=== PATIENT | female | born 1940 | race Caucasian/White ===

== ENCOUNTER 2018-04-28 13:54 | Emergency (ER) | payer BC ==
--- NOTE | 2018-04-28 14:21 | Emergency Department Record ---
History of Present Illness - General Chief complaint: Pain Stated complaint: RT KNEE PAIN Time Seen by Provider: 04/28/18 14:11 Source: Patient, RN notes reviewed Mode of Arrival: Wheelchair - History of Present Illness Initial comments: patient has right knee pain and seen by Dr. Rowe yesterday and she had artrocentesis done she was told it is gout and given a steroid shot and her pain is still bad and she has an effusion of the right knee no warmth and the injection site looks good. PMH Brain bleeds and she cannot use NSAIDs and only uses tylenol for pain. Patient states no falls or injuries and it has been painful on and off for about 3 weeks Onset/Timin -: Days(s) Location: Right, Knee Radiation: None Severity scale (1-10): 6 Quality: Aching, Sharp Consistency: Constant Improves with: Nothing Worsens with: Walking, Weight bearing Associated Symptoms: Denies other symptoms - Related Data Previous Rx's Medication Instructions Recorded Prednisone [Prednisone 10Mg] 10 mg PO ASDIR #30 tab 04/28/18 Tramadol HCl [Ultram] 50 mg PO Q8H #9 tab 04/28/18 Allergies Allergy/AdvReac Type Severity Reaction Status Date / Time morphine Allergy Severe BEHAVIORAL Verified 04/28/18 14:05 CHANGES Travel Screening - Travel/Exposure Within Last 30 Days Have you traveled within the last 30 days?: No Review of Systems Reviewed: No additional complaints except as noted below Constitutional: Reports: As per HPI. Denies: Chills, Fever, Malaise, Night sweats, Weakness, Weight change Eyes: Reports: As per HPI. Denies: Eye discharge, Eye pain, Photophobia, Vision change ENT: Reports: As per HPI. Denies: Congestion, Dental pain, Ear pain, Epistaxis , Hearing loss, Throat pain Respiratory: Reports: As per HPI. Denies: Cough, Dyspnea, Hemoptysis, Stridor, Wheezes Cardiovascular: Reports: As per HPI. Denies: Arrhythmia, Chest pain, Dyspnea on exertion, Edema, Murmurs, Orthopnea, Palpitations, Paroxysmal nocturnal dyspnea, Rheumatic Fever, Syncope Endocrine: Reports: As per HPI. Denies: Fatigue, Heat or cold intolerance, Polydipsia, Polyuria Gastrointestinal: Reports: As per HPI. Denies: Abdominal pain, Constipation, Diarrhea, Hematemesis, Hematochezia, Melena, Nausea, Vomiting Genitourinary: Reports: As per HPI. Denies: Abnormal menses, Discharge, Dyspareunia, Dysuria, Frequency, Hematuria, Incontinence, Retention, Urgency Musculoskeletal: Reports: As per HPI, Joint swelling (right knee). Denies: Arthralgia, Back pain, Gout, Myalgia, Neck pain Skin: Reports: As per HPI. Denies: Bruising, Change in color, Change in hair/ nails, Lesions, Pruritus, Rash Neurological: Reports: As per HPI. Denies: Abnormal gait, Confusion, Headache, Numbness, Paresthesias, Seizure, Tingling, Tremors, Vertigo, Weakness Psychiatric: Reports: As per HPI. Denies: Anxiety, Auditory hallucinations, Depression, Homicidal thoughts, Suicidal thoughts, Visual hallucinations Hematological/Lymphatic: Reports: As per HPI. Denies: Anemia, Blood Clots, Easy bleeding, Easy bruising, Swollen glands Past Medical History - SOCIAL HISTORY Smoking Status: Never smoker - RESPIRATORY Hx Respiratory Disorders: Yes Comment:: sarcoidosis - CARDIOVASCULAR Hx Cardio Disorders: Yes Hx Hypertension: Yes Comment:: possible murmur - NEURO Hx Neuro Disorders: Yes Hx CVA: Yes (brain bleed) Hx Headaches: Yes Comment:: visual disturbances - GI Hx GI Disorders: No - Hx Genitourinary Disorders: Yes Hx Kidney Stones: Yes - ENDOCRINE Hx Endocrine Disorders: No - MUSCULOSKELETAL Hx Musculoskeletal Disorders: Yes Hx Arthritis: Yes Hx Osteoporosis: Yes - PSYCH Hx Psych Problems: Yes Hx Anxiety: Yes - HEMATOLOGY/ONCOLOGY Hx Hematology/Oncology Disorders: No Family Medical History Any Significant Family History?: Yes Hx Dementia: Father Hx Heart Disease: Father, Mother Physical Exam - General General Appearance: Alert, Oriented x3, Cooperative, No acute distress - Head Head exam: Normal inspection - Eye Eye exam: Normal appearance, PERRL Pupils: Normal accommodation - ENT ENT exam: Normal exam, Mucous membranes moist, Normal external ear exam, Normal orophraynx, TM's normal bilaterally Ear exam: Normal external inspection. negative: External canal tenderness Nasal Exam: Normal inspection. negative: Discharge, Sinus tenderness Mouth exam: Normal external inspection, Tongue normal Teeth exam: Normal inspection. negative: Dental caries Throat exam: Normal inspection. negative: Tonsillar erythema, Tonsillar exudate - Neck Neck exam: Normal inspection, Full ROM. negative: Tenderness - Respiratory Respiratory exam: Normal lung sounds bilaterally. negative: Respiratory distress - Cardiovascular Cardiovascular Exam: Regular rate, Normal rhythm, Normal heart sounds - GI/Abdominal GI/Abdominal exam: Soft, Normal bowel sounds. negative: Tenderness - Rectal Rectal exam: Deferred - exam: Deferred - Extremities Extremities exam: Joint swelling, Normal capillary refill, Tenderness - Back Back exam: Reports: Normal inspection, Full ROM. Denies: Muscle spasm, Rash noted, Tenderness - Neurological Neurological exam: Alert, Normal gait, Oriented X3, Reflexes normal - Psychiatric Psychiatric exam: Normal affect, Normal mood - Skin Skin exam: Dry, Intact, Normal color, Warm Course Vital Signs 04/28/18 14:08 Pulse Rate [ 60 Pulse Ox Probe] Respiratory 20 Rate Blood Pressure 152/84 [Left Arm] Pulse Ox 96 Medical Decision Making - Data Complexity MDM Data: X-Ray Ordered and/or Reviewed (WBC 6,300, blood uric acid normal) - Lab Data Result diagrams: 04/28/18 14:27 Disposition Clinical Impression: Knee pain, right Qualifiers: Chronicity: acute Qualified Code(s): M25.561 - Pain in right knee Osteoarthritis Qualifiers: Osteoarthritis location: knee Osteoarthritis type: primary Laterality: right Qualified Code(s): M17.11 - Unilateral primary osteoarthritis, right knee Disposition: Home, Self-Care Condition: (1) Good Instructions: Osteoarthritis (ED) Additional Instructions: follow up with Dr. Rowe Prescriptions: Prednisone [Prednisone 10Mg] 10 mg PO ASDIR #30 tab Tramadol HCl [Ultram] 50 mg PO Q8H #9 tab Forms: Patient Portal Access Time of Disposition: 14:44 Quality - Quality Measures Quality Measures: N/A - Blood Pressure Screening Does Patient Have Any of the Following: No, Active Dx of HTN Blood Pressure Classification: Pre-Hypertensive BP Reading Systolic Measurement: 152 Diastolic Measurement: 84 Screening for High Blood Pressure: Patient Exclusion, Hx of HTN [G9744]
[2018-04-28 14:36] LABS: BASO % 0.5 % (0-6); EOS % 2.1 % (0-6); GRAN % 77.2 % (47-80); HEMATOCRIT 38.7 % (35.0-47.0); HEMOGLOBIN 12.2 gm/dl (11.6-16.0); LYMPH % 13.3 % (16-45); MEAN CELL VOLUME 92.6 fl (81-97); MEAN CORPUSCULAR HEMOGLOBIN 29.2 pg (27-33); MEAN CORPUSCULAR HGB CONC 31.5 g/dl (32-36); MONO % 6.9 % (0-9); PLATELET COUNT 229 K/uL (130-400); RED BLOOD COUNT 4.18 M/uL (3.80-5.40); RED CELL DISTRIBUTION WIDTH 12.6 % (11.5-14.5); WHITE BLOOD COUNT W/O DIFF 6.3 K/uL (4.2-12.2)
[2018-04-28] MEDS ORDERED: TRAMADOL HCL 50 MG TABLET PO ONE (14:44)
== END 2018-04-28 15:30 | disposition home or self-care (01) ==
LOC: ER 13:54
DX: M17.11 Unilateral primary osteoarthritis, right knee (principal); M25.561 Pain in right knee; I10 Essential (primary) hypertension
CPT/HCPCS: 84550; 85025; 99283

== ENCOUNTER 2018-11-27 13:34 | Emergency (ER) | payer BC ==
[2018-11-27 13:53] LABS: ABSOLUTE NEUTROPHIL COUNT 3.16; BASO % 0.6 % (0-6); EOS % 3.1 % (0-6); GRAN % 65.9 % (47-80); HEMATOCRIT 39.3 % (35.0-47.0); HEMOGLOBIN 12.4 gm/dl (11.6-16.0); MEAN CELL VOLUME 91.6 fl (81-97); MEAN CORPUSCULAR HEMOGLOBIN 28.9 pg (27-33); MEAN CORPUSCULAR HGB CONC 31.6 g/dl (32-36); MEAN PLATELET VOLUME 10.1 fl (7.4-10.4); MONO % 10.4 % (0-9); PLATELET COUNT 227 K/uL (130-400); RED BLOOD COUNT 4.29 M/uL (3.80-5.40); RED CELL DISTRIBUTION WIDTH 12.6 % (11.5-14.5); WHITE BLOOD COUNT W/O DIFF 4.8 K/uL (4.2-12.2)
--- NOTE | 2018-11-27 13:54 | Emergency Department Record ---
History of Present Illness - General Chief Complaint: Chest Pain Stated Complaint: CHEST PAIN Time Seen by Provider: 11/27/18 13:45 Source: Patient Mode of Arrival: Ambulatory Limitations: No limitations - History of Present Illness Initial Comments: 78 yo female presents with chest pain. The onset was this morning. The pain was an ache that is now completely gone. The onset was when she awoke. She denies sweating or shortness of breath. She states the ache was not sharp. It did go to her back. She has a "small" aneurysm in chest that has not been checked for a "long time". She can not take aspirin due to a prior cerebral hemorrhage. No pain in the abdomen. No nausea or vomiting. No pain in the arms or legs other than her typical arthritis. MD Complaint: Chest pain -: Hour(s) Onset: Other Pain Location: Substernal Pain Radiation: Back Quality: Aching Consistency: Now resolved Improves With: Nothing Worsens With: Nothing Context: Other Anginal Symptoms: Other Treatments Prior to Arrival: None - Related Data Previous Rx's Medication Instructions Recorded Tramadol HCl [Ultram] 50 mg PO Q8H #9 tab 04/28/18 Allergies Allergy/AdvReac Type Severity Reaction Status Date / Time morphine Allergy Severe BEHAVIORAL Verified 11/27/18 13:46 CHANGES Review of Systems Constitutional: Denies: Chills, Fever, Malaise, Weakness Eyes: Denies: Eye discharge ENT: Denies: Congestion, Throat pain Respiratory: Denies: Cough, Dyspnea Cardiovascular: Reports: Chest pain. Denies: Dyspnea on exertion, Edema, Palpitations, Syncope Endocrine: Denies: Fatigue, Polydipsia, Polyuria Gastrointestinal: Denies: Abdominal pain, Diarrhea, Nausea, Vomiting Genitourinary: Denies: Dysuria, Urgency Musculoskeletal: Reports: Back pain. Denies: Arthralgia, Joint swelling, Myalgia Skin: Denies: Bruising, Change in color, Rash Neurological: Denies: Headache, Numbness, Weakness Psychiatric: Denies: Anxiety Hematological/Lymphatic: Denies: Easy bleeding, Easy bruising Past Medical History - SOCIAL HISTORY Smoking Status: Never smoker - RESPIRATORY Hx Respiratory Disorders: Yes Comment:: sarcoidosis - CARDIOVASCULAR Hx Cardio Disorders: Yes Hx Hypertension: Yes Comment:: possible murmur - NEURO Hx Neuro Disorders: Yes Hx CVA: Yes (brain bleed) Hx Headaches: Yes Comment:: visual disturbances - GI Hx GI Disorders: No - Hx Genitourinary Disorders: Yes Hx Kidney Stones: Yes - ENDOCRINE Hx Endocrine Disorders: No - MUSCULOSKELETAL Hx Musculoskeletal Disorders: Yes Hx Arthritis: Yes Hx Osteoporosis: Yes - PSYCH Hx Psych Problems: Yes Hx Anxiety: Yes - HEMATOLOGY/ONCOLOGY Hx Hematology/Oncology Disorders: No Family Medical History Hx Dementia: Father Hx Heart Disease: Father, Mother Physical Exam - General General Appearance: Alert, Oriented x3, Cooperative, No acute distress Limitations: No limitations - Head Head exam: Atraumatic, Normal inspection - Eye Eye exam: Normal appearance, PERRL. negative: Conjunctival injection, Scleral icterus - ENT ENT exam: Normal exam, Mucous membranes moist Ear exam: Normal external inspection Nasal Exam: Normal inspection Mouth exam: Normal external inspection - Neck Neck exam: Normal inspection - Respiratory Respiratory exam: Normal lung sounds bilaterally. negative: Accessory muscle use, Chest wall tenderness, Decreased breath sounds, Respiratory distress, Rhonchi, Stridor, Wheezes - Cardiovascular Cardiovascular Exam: Regular rate, Normal rhythm, Normal heart sounds Peripheral Pulses: 2+: Radial (R), Radial (L) - GI/Abdominal GI/Abdominal exam: Soft. negative: Tenderness - Rectal Rectal exam: Deferred - exam: Deferred - Extremities Extremities exam: Normal inspection. negative: Calf tenderness, Pedal edema, Tenderness - Back Back exam: Denies: CVA tenderness (R), CVA tenderness (L), Tenderness - Neurological Neurological exam: Alert, Oriented X3 - Psychiatric Psychiatric exam: Normal affect, Normal mood. negative: Agitated, Anxious - Skin Skin exam: Dry, Intact, Normal color, Warm Course - Reevaluation(s) Reevaluation #1: 11/27/18 13:46 EKG #1: 13:37 Rate: 55 Rhythm: sinus [place]: normal Intervals: normal ST segments: normal Prior: none 11/27/18 13:57 She refuses aspirin due to a prior cerebral hemorrhage She states she has not pain at this time 11/27/18 13:57 She does not know who her prior actuarial mathematician is 11/27/18 13:57 11/27/18 14:01 10/2014 CT demonstrated aneurysmal dilatation of the ascending aorta 4.2 x 4.3cm. 11/27/18 14:13 The labs were reviewed No acute changes on the CBC or BMP CTA ordered given her pain through the back and no recent check of the aneurysm. 11/27/18 14:24 The troponin is normal at 0.01 11/27/18 16:04 The CTA of the chest was reviewed. The aneurysm interval change in four years was minimal at 4.4 x 4.3. No dissection. At this point the results were again reviewed with the patient. I explained that chest pain is always a serious concern even with normal results. She does not agree with admission or transfer at this time. I explained that this can be a risk. She understands this and accepts the risk. I explained the AMA process as well with her if she is not willing to be admitted. I will call her PCP to ensure close follow up. She requests a [facility] actuarial mathematician as well and this will be discussed with her PCP. 11/27/18 16:28 The SERVICE SUPPORT REPRESENTATIVE for Dr Rowe (Hellen) was contacted. She will ensure close follow up and refer to [facility] per the patient's wished in [place]. 11/27/18 16:55 Repeat troponin is negative Medical Decision Making - Lab Data Result diagrams: 11/27/18 13:45 11/27/18 13:45 Disposition Disposition: Discharge Clinical Impression: Chest pain Disposition: Against Medical Advice Condition: (1) Good Instructions: Chest Pain (ED), Against Medical Advice (ED) Additional Instructions: Call your doctor for the next available follow up appointment to discuss your symptoms Review this ER visit and the tests performed with your family doctor Return to the ER for a recheck if worse, any new concerns or questions Immediately return or go to [facility] where [facility] actuarial mathematician are located if the chest pain returns Forms: Patient Portal Access Time of Disposition: 16:56 Quality - Quality Measures Quality Measures: N/A - Blood Pressure Screening Does Patient Have Any of the Following: Active Dx of HTN Blood Pressure Classification: Pre-Hypertensive BP Reading Systolic Measurement: 147 Diastolic Measurement: 80 Screening for High Blood Pressure: Patient Exclusion, Hx of HTN [G9744]
[2018-11-27 14:04] LABS: BLOOD UREA NITROGEN 15 mg/dL (8-23); CREATININE 0.8 mg/dL (0.5-0.9); EST GLOMERULAR FILTRATION RATE > 60 mL/min
[2018-11-27 14:06] LABS: PARTIAL THROMBOPLASTIN TIME 29.5 SECONDS (24.5-39.1); PROTHROMBIN TIME (PATIENT) 10.3 SECONDS (9.5-12.1)
[2018-11-27 14:07] LABS: GLUCOSE,RANDOM 121 mg/dL (74-109)
[2018-11-27 14:10] LABS: ALB/GLOB RATIO 1.4 (1.1-1.8); ALBUMIN 4.1 g/dL (4.0-5.0); ALKALINE PHOSPHATASE 66 U/L (35-104); ALT/SGPT 6 U/L (<33); AST/SGOT 23 U/L (10.0-35.0)
--- NOTE | 2018-11-28 20:13 | CT ANGIOGRAM REPORT ---
EXAM: CT ANGIOGRAM CHEST/ABDOMEN CTA HISTORY: MID CHEST PAIN RADIATING TO BACK AND LEFT SHOULDER. KNOWN THORACIC AORTIC ANEURYSM. TECHNIQUE: Initial noncontrast imaging is performed from the level of the hemithorax apices through the common iliac bifurcations. Next, CTA examination of the chest and abdomen is performed with 91 mL of Omnipaque-350 utilized. Coronal and sagittal maximum-intensity projection reformatted images are generated and reviewed as well as 3D volume-rendered images. COMPARISON: CT chest, abdomen, and pelvis with contrast dated 11/15/2014. FINDINGS: CHEST: There is diffuse atherosclerosis of the aorta. There is no differential density within the aortic lumen on noncontrast images. On CTA images, there is satisfactory opacification of the systemic arteries as well as pulmonary arteries. No focal aneurysm of the thoracic aorta is identified. The following measurements are obtained: Aortic annulus: 2.5 x 3.3 cm. Sinuses of Valsalva: 3.6 x 4.1 cm Sinotubular junction: 3.1 x 3.6 cm. Ascending thoracic aorta at the level of the right main pulmonary artery: 4.3 x 4.3 cm. Proximal aortic arch: 3.5 cm. Distal aortic arch: 2.6 cm. Proximal descending thoracic aorta: 2.8 cm. Distal descending thoracic aorta: 2.4 cm. Aortic hiatus: 2.4 cm. No luminal filling defect is noted in the outflow tract, main arteries, lobar arteries, or proximal segmental arteries to suggest acute pulmonary embolic disease. No mediastinal nor hilar mass/lymphadenopathy. The central airways are clear. Reticular opacity prominence is present within the lung bases peripherally consistent with mild fibrosis. This has not worsened. There are chronic findings centrally within the right upper lobe including bronchiectasis and ground-glass opacities, likely relating to postinflammatory scarring. This is stable. No new lung consolidation. No suspicious nodule. No pleural or pericardial effusion. ABDOMEN: No fusiform aneurysmal dilatation is seen. There is small focal outpouching involving the proximal infrarenal abdominal aorta. This measures 7 mm in diameter. This arises from the left anterior wall. On the prior examination, this subtle outpouching measures 6 mm. Overall, the diameter at this level measures 2 cm. There is minor ectasia of the distal infrarenal abdominal aorta, also measuring 2 cm. There is no dissection. No clinically significant stenosis is demonstrated within the celiac artery or superior mesenteric artery, nor their proximal branches. There is minimal atherosclerosis of the superior mesenteric artery. A patent inferior mesenteric artery is present. There are single renal arteries. There is mild atherosclerosis of the proximal left renal artery without clinically significant stenosis. The proximal right renal artery is widely patent. The aortic bifurcation is patent. There is mild atherosclerosis of the common iliac arteries without aneurysmal dilatation. The common iliac bifurcations are patent. Evaluation of the solid viscera is limited by imaging during early phase of enhancement. With this in mind, no suspicious focal abnormality demonstrated within the liver, spleen, pancreas, adrenal glands, nor kidneys. The gallbladder is unremarkable and no biliary ductal dilatation is seen. No intraabdominal nor retroperitoneal lymphadenopathy. No dilatation or wall thickening of visualized bowel. There is mild diverticulosis of the visualized colon without evidence of diverticulitis. No lytic or blastic bone lesion is seen. There are degenerative changes scattered throughout the visualized spine associated with mild dextroconvex scoliosis centered at the upper lumbar levels. Minor superior endplate compression deformity of T12 has a chronic appearance. IMPRESSION: 1. MINOR ECTASIA OF THE ASCENDING THORACIC AORTA REDEMONSTRATED, NOT GROSSLY CHANGED IN THE INTERVAL. NO THORACIC AORTIC DISSECTION. THERE IS MILD ATHEROSCLEROTIC CALCIFICATION OF THE LEFT CORONARY ARTERY. 2. TINY OUTPOUCHING ARISING FROM THE LEFT ANTERIOR WALL OF THE PROXIMAL INFRARENAL ABDOMINAL AORTA MEASURING 7 MM, WHILE ON THE PRIOR EXAMINATION 6 MM. MINOR ECTASIA OF THE DISTAL INFRARENAL ABDOMINAL AORTA MEASURING [address] CM[address] CONVINCING [address] EVIDENCE OF AN ACUTE INTRATHORACIC NOR INTRAABDOMINAL PROCESS. 4. CHRONIC FINDINGS SCATTERED THROUGHOUT THE LUNGS. 5. COLONIC DIVERTICULOSIS. 6. NOT MENTIONED IN THE BODY OF THE REPORT ARE WIDELY PATENT ARCH BRANCH VESSELS. ALSO NOT MENTIONED IN THE BODY OF THE REPORT IS A TINY NONOBSTRUCTING CALCULUS IN THE UPPER POLE OF THE LEFT KIDNEY. JOB NUMBER: [id number] [facility]
== END 2018-11-27 17:26 | disposition left against medical advice (07) ==
LOC: ER 13:34
DX: R07.2 Precordial pain (principal); I71.2 Thoracic aortic aneurysm, without rupture; I10 Essential (primary) hypertension
CPT/HCPCS: 71275; 74175; 80053; 84484; 85025; 85379; 85610; 85730; 93005; 93010; 99284